=== PATIENT | female | born 1995 | race Caucasian/White ===

== ENCOUNTER 2022-03-27 16:10 | Outpatient (CLI) | payer BC, MEDICAID, SELFPAY | END 2022-03-27 16:11 | disposition home or self-care (01) | PROVIDERS: PCP Family Medicine; Visit Provider Family Medicine | DX: E05.00 Thyrotoxicosis with diffuse goiter without thyrotoxic crisis or storm (principal) | CPT/HCPCS: 84443 ==

== ENCOUNTER 2022-10-02 14:30 | Outpatient (CLI) | payer MEDICAID, SELFPAY | END 2022-10-02 14:31 | disposition home or self-care (01) | LOC: NFLDREF 10-03 10:26 | PROVIDERS: PCP Family Medicine; Referring Provider Family Medicine; Visit Provider Family Medicine | DX: E05.90 Thyrotoxicosis, unspecified without thyrotoxic crisis or storm (principal) | CPT/HCPCS: 84439; 84443 ==

== ENCOUNTER 2023-01-27 13:36 | Outpatient (CLI) | payer BC, MEDICAID, SELFPAY | END 2023-01-27 13:37 | disposition home or self-care (01) | PROVIDERS: PCP Family Medicine; Visit Provider Family Medicine | DX: R53.83 Other fatigue (principal); Z13.29 Encounter for screening for other suspected endocrine disorder | CPT/HCPCS: 80048; 84443 ==

== ENCOUNTER 2023-07-21 14:20 | Outpatient (CLI) | payer BC, MEDICAID, SELFPAY ==
--- OUTSIDE RECORDS SUMMARY | 2023-07-23 10:48 | XMS_ITS | Clinical Summary ---
Author Name Unknown Organization [facility] Address [place], [place] [address] Care Team Providers Care Foundry Supervisor Name Role Phone [facility] Provider [phone] Allergies Active Allergy Reactions Criticality Noted Date Comments Coconut Oil Tongue Swelling High 09/14/2019 Methimazole Hives 09/14/2019 Nystatin Hives 09/14/2019 Ondansetron Hcl Phlebitis 09/14/2019 Medications Medication Sig Dispensed Refills Start Date End Date Status IBUPROFEN (MOTRIN ORAL) Take by mouth once daily if needed. Active LIDOCAINE HCL (MAGIC MOUTHWASH ORAL SUSPENSION, [facility] SPECIAL MIXTURE,)Indicatio ns:Acute pharyngitis Swish and swallow 5-10 mL by mouth 4 times daily if needed. 80 mL 0 04/09/2010 Active medroxyPROGESTERon e acetate, contraceptive, (DEPO-PROVERA) injectionIndicatio ns: control counseling Inject 150 mg intramuscular every 3 months. 150 mg 3 02/29/2012 Active escitalopram oxalate (LEXAPRO) 20 mg tablet Take 20 mg by mouth once daily. Active LORazepam (ATIVAN) 0.5 mg tab Take 0.5 mg by mouth 3 times daily if needed. Active zonisamide (ZONEGRAN) 100 mg capsule Take 100 mg by mouth once daily. Active propylthiouraciL 50 mg tablet Take by mouth once daily. Active diphenhydrAMINE (BENADRYL) 50 mg capsule Take 50 mg by mouth every 6 hours if needed. Active ketorolac (TORADOL) 10 mg tablet Take 1 tablet by mouth every 6 hours if needed for Pain. Maximum of 40 mg in 24 hours. 0 09/25/2019 Active HYDROcodone-acetam inophen, 5-325 mg, (NORCO) per tabletIndications: Acute post-operative pain Take 1-2 tablets by mouth every 4 hours if needed for Pain Max acetaminophen dose: 4000 mg in 24 hrs. 20 tablet 09/18/2019 Active acetaminophen (TYLENOL) 325 mg tablet Take 1-2 tablets by mouth every 4 hours if needed (pain). Max acetaminophen dose: 4000mg in 24 hrs. 0 09/18/2019 Active Active Problems Problem Noted Date Diagnosed Date Migraine 04/22/2020 Anxiety state, unspecified 02/29/2012 Immunizations Name Administration Dates Next Due DTaP 11/17/2001, 8,03/20/1997,01/09,1996 Hepatitis B (Peds) 12/10/1997,01/09/1997, 997 Hib Conjugate, Unspecified 12/10/1997,,01/09/1997,11/06 Human Papilloma Virus Vaccine 02/29/2012 Inactivated Polio Vaccine 11/17/2001,,01/09/1997,11/06 Influenza A (H1N1), Inactiva cookie (Age >=3 Years) 05/01/2009 Influenza, IIV3 (Age >=3 years) 02/29/2012 MMR 05/16/2009,12/10/1997 Meningococcal Vaccine (Menactra) 02/29/2012 Tdap 05/01/2009 Varicella Vaccine 05/16/2009,12/10/1997 Family History Medical History Relation Name Comments Good Health Father Psychiatric illness Mother anxiety Relation Name Status Comments Brother 1 Alive Brother 2 Alive Father Alive Mother Alive Social History Tobacco Use Types Packs/Day Years Used Date Smoking Tobacco: Passive Smo ke Exposure - Never Smoker Smokeless Tobacco: Never Alcohol Use Standard Drinks/Week Comments No 0 (1 standard drink = 0.6 oz pur e alcohol) Sex and Gender Information Value Date Recorded Sex Assigned at Not on file Gender Identity Not on file Sexual Orientation Not on file Obstetrics History Para Term AB IAB SAB Ectopic Multiple Livin g Live Births 0 0 0 0 0 0 0 0 0 0 Last Filed Vital Signs Vital Sign Reading Time Taken Comments Blood Pressure 134/77 04/22/2020 2:00 PM GUN NUMBERER Pulse 107 04/22/2020 2:00 PM GUN NUMBERER Temperature 37.1 ??C (98.8 ??F) 04/22/2020 2:00 PM CS T Respiratory Rate 16 04/22/2020 2:00 PM GUN NUMBERER Oxygen Saturation 95% 09/18/2019 11:00 AM CDT Inhaled Oxygen Concentration - - Weight 88.9 kg (196 lb) 09/18/2019 6:20 AM CDT Height 167.6 cm (5' 6) 09/18/2019 6:20 AM CDT Body Mass Index 31.64 09/18/2019 6:20 AM CDT Plan of Treatment Health Maintenance Due Date Last Done Comments HIV for age 15-65 09/06/2011 HPV series for age 9-26 (2 - 3-dose series) 03/28/2012 02/29/2012 BMI (ht and wt on same day) for age 18+ 2014 Hepatitis C screening for ag e 18-79 2014 Tetanus booster 05/01/2019 05/01/2009 Pap test for age 21-65 10/06/2021 10/06/2018 Depression screening for age 12+ 12/27/2021 12/27/2020, 10/26/2019 COVID-19 vaccine series (2022- season) 2022 Influenza for age 9-49 11/21/2023 2, 05/01/2009 Tdap Completed 05/01/2009 Pneumococcal series for age 6-64 Aged Out No longer eligible b ased on patient's age to complete this topic Medical Devices Implanted Type Area Oil Distributor Device Identifier Shelf Expiration Date Model / Serial / Lot [id number] Vagus Nerve 2mm Perenniaflex - [id number] Implanted:Qty: 1 on 09/18/2019 by Cornelio Peck MD at [facility] Explanted:at [facility] (Quantity not on file) N/A: Neck BluelightApp 03/26/2023 304-20# / [id number] / [id number] ator Vagus Nerve 8cc Sentiva Sngl Pin - [id number] Implanted:Qty: 1 on 09/18/2019 by Cornelio Peck MD at [facility] Explanted:at [facility] (Quantity not on file) N/A: Neck BluelightApp 06/13/2025 1000# / [id number] / Procedures Procedure Name Priority Date/Time Associated Diagnosis Comments METER RECORD CLERK THIN PREP PAP SCREEN IMAGED Routine 10/06/2018 2:00 PM CDT from Last 3 Months or Most Recently Relevant to Health Maintenance Results * METER RECORD CLERK THIN PREP PAP SCREEN IMAGED (10/06/2018 2:00 PM CDT) Case Report Gynecologic Cytology Report ? Case: [id number] ? Authorizing Provider: ??Mindy Monreal MD ? Collected: ? 10/06/2018 1400 ? Ordering Location: ? [facility] ?Received: ?10/10/2018 0737 ? First Screen: ?[place] ? Specimen: ?METER RECORD CLERK ThinPrep Vial Screening, Cervical/Vaginal ? 10/18/2018 12:56 PM CDT [employer] LABORATORY-C ENTRAL LABORATORY INTERPRETATION/ RESULT NEGATIVE FOR INTRAEPITHELIAL LESION OR MALIGNANCY (NIL) (none) 10/18/2018 12:56 PM CDT [employer] LABORATORY-C ENTRAL LABORATORY IMEN ADEQUACY Satisfactory for evaluation Endocervical component present 10/18/2018 12:56 PM CDT [facility] HPV REQUEST HPV if ASCUS 10/18/2018 12:56 PM CDT [facility] Last Pap Result First Pap/Unknown 12:56 PM CDT [facility] Automated Review Successful 10/18/2018 12:56 PM CDT [facility] Comment:Specimen processed s uccessfully by automated bricklayer helper device, ThinPrep Imaging System, [employer] Note The pap test is a screening technique, not a diagnostic procedure. ??It is used primarily to screen for squamous cancers and precursor lesions. ??Published studies have shown that it is subject to both false negative and false positive results. ??The pap test should not be used as the sole means to diagnose or exclude pre-malignant and malignant lesions. Cytology is screened and interpreted at [facility] - [address], [place] [address] and [facility] - [address]; [place] [address] and [facility] - [address]; [place] [address] and [facility] [address]; [place] [address] 10/18/2018 12:56 PM CDT [facility] Other (Cervical/Vagina l) 10/06/2018 2:00 PM CDT 10/10/2018 7:37 AM CDT Mindy Monreal MD PATHOLOGY/CYTOLOGY [facility] [address] [place] [address], [place] from Last 3 Months or Most Recently Relevant to Health Maintenance Advance Directives * Full Code (Latest Code Status on File) Date Activated Date Inactivated Comments 09/18/2019 5:55 AM 09/18/2019 1:48 PM Care Teams Foundry Supervisor Relationship Specialty Start Date End Date [facility] [address] [place] [address] PCP - General 04/22/20
== END 2023-07-21 14:21 | disposition home or self-care (01) ==
LOC: NFLDREF 07-23 10:45
PROVIDERS: PCP Family Medicine; Visit Provider Family Medicine
DX: D69.6 Thrombocytopenia, unspecified (principal); E05.90 Thyrotoxicosis, unspecified without thyrotoxic crisis or storm
CPT/HCPCS: 84439; 84443

== ENCOUNTER 2023-11-15 13:42 | Outpatient (CLI) | payer BC, MEDICAID, SELFPAY ==
--- OUTSIDE RECORDS SUMMARY | 2023-11-15 13:43 | XMS_ITS | Clinical Summary ---
Author Organization [facility] Address [place], [place] [address] Care Team Providers Care Logistics Engineer Name Role Phone [facility] Primary Care Pr ovider Allergies Active Allergy Reactions Criticality Noted Date Comments Coconut Oil Tongue Swelling High 09/14/2019 Methimazole Hives 09/14/2019 Nystatin Hives 09/14/2019 Ondansetron Hcl Phlebitis 09/14/2019 Medications Medication Sig Dispensed Refills Start Date End Date Status IBUPROFEN (MOTRIN ORAL) Take by mouth once daily if needed. Active LIDOCAINE HCL (MAGIC MOUTHWASH ORAL SUSPENSION, [facility] SPECIAL MIXTURE,)Indicatio ns:Acute pharyngitis Swish and swallow [...] Comments Blood Pressure 134/77 04/22/2020 2:00 PM DEMI CHEF Pulse 107 04/22/2020 2:00 PM DEMI CHEF Temperature 37.1 ??C (98.8 ??F) 04/22/2020 2:00 PM CS T Respiratory Rate 16 04/22/2020 2:00 PM DEMI CHEF Oxygen Saturation 95% 09/18/2019 11:00 AM CDT Inhaled Oxygen Concentration - - Weight 88.9 kg (196 lb) 09/18/2019 6:20 AM CDT Height 167.6 cm (5' 6) 09/18/2019 6:20 AM CDT Body Mass Index 31.64 09/18/2019 6:20 AM CDT Plan of Treatment Health Maintenance Due Date Last Done Comments HIV for age 15-65 09/06/2011 BMI (ht and wt on same day) for age 18+ 2014 Hepatitis C screening for ag e 18-79 2014 Tetanus booster 05/01/2019 05/01/2009 Pap test for age 21-65 10/06/2021 10/06/2018 Depression screening for age 12+ 12/27/2021 12/27/2020, 10/26/2019 COVID-19 vaccine series (2022-24 season) 2022 Influenza for age 9-49 11/21/2023 2, 05/01/2009 Tdap Completed 05/01/2009 Pneumococcal series for age 6-64 Aged Out No longer eligible b ased on patient's age to complete this topic Medical Devices Implanted Type Area Boring Mill Set Up Operator Device Identifier Shelf Expiration Date Model / Serial / Lot [id number] Vagus Nerve 2mm Perenniaflex - [id number] Implanted:Qty: 1 on 09/18/2019 by Cornelio Peck MD at [facility] Explanted:at [facility] (Quantity not on file) N/A: Carbonated Content 03/26/2023 304-20# / [id number] / [id number] ator Vagus Nerve 8cc Sentiva Sngl Pin - [id number] Implanted:Qty: 1 on 09/18/2019 by Cornelio Peck MD at [facility] Explanted:at [facility] (Quantity not on file) N/A: Neck Pluck 06/13/2025 1000# / [id number] / Procedures Procedure Name Priority Date/Time Associated Diagnosis Comments CLOTH COVERED HELMET PULLER THIN PREP PAP SCREEN IMAGED Routine 10/06/2018 2:00 PM CDT from Last 3 Months or Most Recently Relevant to Health Maintenance Results * CLOTH COVERED HELMET PULLER THIN PREP PAP SCREEN IMAGED (10/06/2018 2:00 PM CDT) Case Report Gynecologic Cytology Report ? Case: [id number] ? Authorizing Provider: ??Mindy Monreal MD ? Collected: ? 10/06/2018 1400 ? Ordering Location: ? [facility] ?Received: ?10/10/2018 0737 ? First Screen: ?[place] ? Specimen: ?CLOTH COVERED HELMET PULLER ThinPrep Vial Screening, Cervical/Vaginal ? 10/18/2018 12:56 PM CDT [facility] LABORAT[facility]-C ENTRAL LABORATORY INTERPRETATION/ RESULT NEGATIVE FOR INTRAEPITHELIAL LESION OR MALIGNANCY (NIL) (none) 10/18/2018 12:56 PM CDT [facility]-C ENTRAL LABORATORY IMEN ADEQUACY Satisfactory for evaluation Endocervical component present 10/18/2018 12:56 PM CDT [facility] LABORAT[facility]-C ENTRAL LABORATORY HPV REQUEST HPV if ASCUS 10/18/2018 12:56 PM CDT [facility] Last Pap Result First Pap/Unknown 12:56 PM CDT [facility] Automated Review Successful 10/18/2018 12:56 PM CDT [facility] Comment:Specimen processed s uccessfully by automated varsity baseball coach device, MediaTrovePrep Imaging System, [employer] Note The pap test is a [...] lesions. Cytology is screened and interpreted at [facility] - [address], [place] [address] and [facility] - [address]; [place] [address] and [facility] - [address]; [place] [address] and [facility] [address]; [place] [address] 10/18/2018 12:56 PM CDT [facility] Other (Cervical/Vagina l) 10/06/2018 2:00 PM CDT 10/10/2018 7:37 AM CDT Mindy Monreal MD PATHOLOGY/CYTOLOGY [facility] [address] [place] [address], from Last 3 Months or Most Recently Relevant to Health Maintenance Advance Directives * Full Code (Latest Code Status on File) Date Activated Date Inactivated Comments 09/18/2019 5:55 AM 09/18/2019 1:48 PM Care Teams Logistics Engineer Relationship Specialty Start Date End Date Clinic, [facility] [address] [place] [address] PCP - General 04/22/20
[2023-11-16 00:24] LABS: Chlamydia DNA Amplified* NOT DETECTED (No Detected); GC DNA Amplified* NOT DETECTED (No Detected)
== END 2023-11-15 13:43 | disposition home or self-care (01) ==
PROVIDERS: PCP Family Medicine; Visit Provider Physician Assistant
DX: R10.2 Pelvic and perineal pain (principal); Z11.3 Encounter for screening for infections with a predominantly sexual mode of transmission
CPT/HCPCS: 87086; 87491; 87591

== ENCOUNTER 2023-12-06 14:53 | Outpatient (CLI) | payer BC, MEDICAID, SELFPAY ==
--- OUTSIDE RECORDS SUMMARY | 2023-12-06 14:55 | XMS_ITS | Clinical Summary ---
Author Organization [facility] Address [place], [place] [address] Care Team Providers Care Mid Wife Name Role Phone [facility] Primary Care Pr ovider Allergies Active Allergy Reactions Criticality Noted Date Comments Coconut Oil Tongue Swelling High 09/14/2019 Methimazole Hives 09/14/2019 Nystatin Hives 09/14/2019 Ondansetron Hcl Phlebitis 09/14/2019 Medications Medication Sig Dispensed Refills Start Date End Date Status IBUPROFEN (MOTRIN ORAL) Take by mouth once daily if needed. Active LIDOCAINE HCL (MAGIC MOUTHWASH ORAL SUSPENSION, [facility] SPECIAL MIXTURE,)Indicatio ns:Acute pharyngitis Swish and [...] Comments Blood Pressure 134/77 04/22/2020 2:00 PM WASHER AND CRUSHER TENDER Pulse 107 04/22/2020 2:00 PM WASHER AND CRUSHER TENDER Temperature 37.1 ??C (98.8 ??F) 04/22/2020 2:00 PM CS T Respiratory Rate 16 04/22/2020 2:00 PM WASHER AND CRUSHER TENDER Oxygen Saturation 95% 09/18/2019 11:00 AM CDT [...] 12/27/2020, 10/26/2019 COVID-19 vaccine series (2022- season) 2023 Influenza for age 9-49 11/21/2023 2, 05/01/2009 Tdap Completed 05/01/2009 Pneumococcal series for age 6-64 Aged Out No longer eligible b ased on patient's age to complete this topic Medical Devices Implanted Type Area Costumed Character Device Identifier Shelf Expiration Date Model / Serial / Lot [id number] Vagus Nerve 2mm Perenniaflex - [id number] Implanted:Qty: 1 on 09/18/2019 by Cornelio Peck MD at [facility] Explanted:at [facility] (Quantity not on file) N/A: [id number] 03/26/2023 304-20# / [id number] / [id number] ator Vagus Nerve 8cc Sentiva Sngl Pin - [id number] Implanted:Qty: 1 on 09/18/2019 by Cornelio Peck MD at [facility] Explanted:at [facility] (Quantity not on file) N/A: Neck Kloudco 06/13/2025 1000# / [id number] / Procedures Procedure Name Priority Date/Time Associated Diagnosis Comments FIRE EXTINGUISHER TECHNICIAN THIN PREP PAP SCREEN IMAGED Routine 10/06/2018 2:00 PM CDT from Last 3 Months or Most Recently Relevant to Health Maintenance Results * FIRE EXTINGUISHER TECHNICIAN THIN PREP PAP SCREEN IMAGED (10/06/2018 2:00 PM CDT) Case Report Gynecologic Cytology Report ? Case: [id number] ? Authorizing Provider: ??Mindy Monreal MD ? Collected: ? 10/06/2018 1400 ? Ordering Location: ? [facility] ?Received: ?10/10/2018 0737 ? First Screen: ?[place] ? Specimen: ?FIRE EXTINGUISHER TECHNICIAN ThinPrep Vial Screening, Cervical/Vaginal ? 10/18/2018 12:56 PM CDT [employer] [facility] LABORATORY-C ENTRAL LABORATORY INTERPRETATION/ RESULT NEGATIVE FOR INTRAEPITHELIAL LESION OR MALIGNANCY (NIL) (none) 10/18/2018 12:56 PM CDT [employer]-C ENTRAL LABORATORY IMEN ADEQUACY Satisfactory for evaluation Endocervical component present 10/18/2018 12:56 PM CDT [facility] LABORAT[facility]-C ENTRAL LABORATORY HPV REQUEST HPV if ASCUS 10/18/2018 12:56 PM CDT [facility] LABORAT[facility] Last Pap Result First Pap/Unknown 12:56 PM CDT [facility] Automated Review Successful 10/18/2018 12:56 PM CDT [facility] Comment:Specimen processed s uccessfully by automated experience designer device, SoundOutPrep Imaging System, [employer] Note The pap test is a [...] lesions. Cytology is screened and interpreted at [facility] - [address], [place] [address] and [facility] - [address]; [place] [address] and [facility] - [address]; [place] [address] and [facility] [address]; [place] [address] 10/18/2018 12:56 PM CDT [facility] Other (Cervical/Vagina l) 10/06/2018 2:00 PM CDT 10/10/2018 7:37 AM CDT Mindy Monreal MD PATHOLOGY/CYTOLOGY [facility] [address] [place] [address], from Last 3 Months or Most Recently Relevant to Health Maintenance Advance Directives * Full Code (Latest Code Status on File) Date Activated Date Inactivated Comments 09/18/2019 5:55 AM 09/18/2019 1:48 PM Care Teams Mid Wife Relationship Specialty Start Date End Date Clinic, [facility] [address] [place] [address] PCP - General 04/22/20
--- NOTE | 2023-12-06 15:00 | CRLHL7_ITS ---
For Patients: As a result of the Century Cures Act, medical imaging exams and procedure reports are released immediately into your electronic medical record. You may view this report before your referring provider. If you have questions, please contact your health care provider. CLINICAL HISTORY: Pelvic pain TECHNIQUE: 2D doe scale ultrasound. In addition color Doppler and spectral Doppler analysis was performed of the pelvis using a transvaginal approach. FINDINGS: Uterus measures 5.8 x 2.9 x 3.3 cm. The endometrial lining measures 7 mm in thickness. The right ovary measures 4.0 x 2.7 x 2.7 cm in size and the left ovary is not visualized. The right ovary demonstrates normal arterial and venous blood flow on color Doppler and spectral Doppler analysis. There are no suspicious fluid collections within the cul-de-sac. IMPRESSION: Normal right ovary. Left ovary not visualized. No excess pelvic free fluid or adnexal mass. No uterine fibroid. Dictated by George Conte MD @ 12/07/2023 10:11:02 AM (Electronically Signed)
== END 2023-12-06 14:54 | disposition home or self-care (01) ==
LOC: US 14:54
PROVIDERS: PCP Family Medicine; Visit Provider Physician Assistant
DX: R10.2 Pelvic and perineal pain (principal)
CPT/HCPCS: 76830; 76856; 93976

== ENCOUNTER 2024-01-05 15:05 | Outpatient (CLI) | payer BC, MEDICAID, SELFPAY ==
--- OUTSIDE RECORDS SUMMARY | 2024-01-05 15:08 | XMS_ITS | Clinical Summary ---
Author Organization [facility] Address [place], [place] [address] Care Team Providers Care Computer Aided Drafter Name Role Phone [facility] Primary Care Pr ovider Allergies Active Allergy Reactions Criticality Noted Date Comments Coconut Oil Tongue Swelling High 09/14/2019 Methimazole Hives 09/14/2019 Nystatin Hives 09/14/2019 Ondansetron Hcl Phlebitis 09/14/2019 Medications Medication Sig Dispensed Refills Start Date End Date Status IBUPROFEN (MOTRIN ORAL) Take by mouth once daily if needed. Active LIDOCAINE HCL (MAGIC MOUTHWASH ORAL SUSPENSION, [facility] SPECIAL MIXTURE,)Indicatio ns:Acute pharyngitis Swish and [...] Comments Blood Pressure 134/77 04/22/2020 2:00 PM TRIPE COOKER Pulse 107 04/22/2020 2:00 PM TRIPE COOKER Temperature 37.1 ??C (98.8 ??F) 04/22/2020 2:00 PM CS T Respiratory Rate 16 04/22/2020 2:00 PM TRIPE COOKER Oxygen Saturation 95% 09/18/2019 11:00 AM CDT [...] 12+ 12/27/2021 12/27/2020, 10/26/2019 COVID-19 vaccine series (2023- season) 2023 Influenza for age 9-49 11/21/2023 2, 05/01/2009 Tdap Completed 05/01/2009 Pneumococcal series for age 6-64 Aged Out No longer eligible b ased on patient's age to complete this topic Medical Devices Implanted Type Area Editor Producer Device Identifier Shelf Expiration Date Model / Serial / Lot [id number] Vagus Nerve 2mm Perenniaflex - [id number] Implanted:Qty: 1 on 09/18/2019 by Cornelio Peck MD at [facility] Explanted:at [facility] (Quantity not on file) N/A: OrangeSoda 03/26/2023 304-20# / [id number] / [id number] ator Vagus Nerve 8cc Sentiva Sngl Pin - [id number] Implanted:Qty: 1 on 09/18/2019 by Cornelio Peck MD at [facility] Explanted:at [facility] (Quantity not on file) N/A: Neck ShopTap 06/13/2025 1000# / [id number] / Procedures Procedure Name Priority Date/Time Associated Diagnosis Comments DIRECTOR OF BUSINESS OPERATIONS THIN PREP PAP SCREEN IMAGED Routine 10/06/2018 2:00 PM CDT from Last 3 Months or Most Recently Relevant to Health Maintenance Results * DIRECTOR OF BUSINESS OPERATIONS THIN PREP PAP SCREEN IMAGED (10/06/2018 2:00 PM CDT) Case Report Gynecologic Cytology Report ? Case: [id number] ? Authorizing Provider: ??Mindy Monreal MD ? Collected: ? 10/06/2018 1400 ? Ordering Location: ? [facility] ?Received: ?10/10/2018 0737 ? First Screen: ?[place] ? Specimen: ?DIRECTOR OF BUSINESS OPERATIONS ThinPrep Vial Screening, Cervical/Vaginal ? 10/18/2018 12:56 PM CDT [facility] LABORAT[facility]-C ENTRAL LABORATORY INTERPRETATION/ RESULT NEGATIVE FOR INTRAEPITHELIAL LESION OR MALIGNANCY (NIL) (none) 10/18/2018 12:56 PM CDT [facility] ENTRAL LABORATORY IMEN ADEQUACY Satisfactory for evaluation Endocervical component present 10/18/2018 12:56 PM CDT [facility] ENTRAL LABORATORY HPV REQUEST HPV if ASCUS 10/18/2018 12:56 PM CDT [facility] Last Pap Result First Pap/Unknown 12:56 PM CDT [facility] Automated Review Successful 10/18/2018 12:56 PM CDT [facility] Comment:Specimen processed s uccessfully by automated podiatric technician device, Bioservo TechnologiesPrep Imaging System, [email or web address] Note The pap test is a [...] - [address], [place] [address] and [facility] - [address]; [place] [address] and [facility] - [address]; [place] [address] and [facility] [address]; [place] [address] 10/18/2018 12:56 PM CDT [facility] Other (Cervical/Vagina l) 10/06/2018 2:00 PM CDT 10/10/2018 7:37 AM CDT Mindy Monreal MD PATHOLOGY/CYTOLOGY [facility] [address] [place] [address], from Last 3 Months or Most Recently Relevant to Health Maintenance Advance Directives * Full Code (Latest Code Status on File) Date Activated Date Inactivated Comments 09/18/2019 5:55 AM 09/18/2019 1:48 PM Care Teams Computer Aided Drafter Relationship Specialty Start Date End Date Clinic, [facility] [address] [place] [address] PCP - General 04/22/20
== END 2024-01-05 15:06 | disposition home or self-care (01) ==
PROVIDERS: PCP Family Medicine; Visit Provider Family Medicine
DX: D50.9 Iron deficiency anemia, unspecified (principal); E05.90 Thyrotoxicosis, unspecified without thyrotoxic crisis or storm
CPT/HCPCS: 84439; 84443; 84480

== ENCOUNTER 2024-07-06 13:38 | Outpatient (CLI) | payer BC, MEDICAID, SELFPAY | END 2024-07-06 13:39 | disposition home or self-care (01) | PROVIDERS: PCP Family Medicine; Visit Provider Family Medicine | DX: R10.84 Generalized abdominal pain (principal); E05.90 Thyrotoxicosis, unspecified without thyrotoxic crisis or storm | CPT/HCPCS: 80076; 83690; 84443; 86231; 86258; 86364 ==